=== PATIENT | male | born 1950 | race Caucasian/White ===

== ENCOUNTER → 2023-09-28 | Outpatient (CLI) | payer MEDICARE, OTHER, SELFPAY ==
--- NOTE | 2023-09-28 14:02 | EKG12_ITS ---
Test Reason : PRE OP Blood Pressure : / mmHG Vent. Rate : 079 BPM Atrial Rate : 079 BPM P-R Int : 170 ms QRS Dur : 084 ms QT Int : 384 ms P-R-T Axes : 067 034 021 degrees QTc Int : 440 ms Normal sinus rhythm Normal ECG Confirmed by Cory Spear ([id number]), publication editor FELISA GLASER ([id number]) on 09/29/2023 6:55:21 AM Referred By: Roxi Anderson Confirmed By:Cory Spear
[2023-09-28 15:07] LABS: Absolute Lymphocyte Count 1.56 X10^3/uL (0.83-4.51); Absolute Neutrophil Count 2.9 X10^3/uL (2.0-7.7); Basophil# 0.04 X10^3/uL; Basophil% 0.8 % (0-1); Eosinophil# 0.22 X10^3/uL; Eosinophils% 4.2 % (0-5); Hematocrit 40.3 % (40-54); Hemoglobin 14.1 g/dL (13.0-16.5); Lymphocyte # 1.56 X10^3/ul (0.83-4.51); Mean Corpuscular Hgb 31.3 pg (27.0-32.0); Mean Corpuscular Volume 89.4 fL (80-94); Mean Platelet Vol. 9.5 fl (6.2-12.0); Monocyte# 0.45 X10^3/uL; Monocyte% 8.7 % (0-10); NRBC Flagged by Analyzer 0 % (0-5); Neutrophil # 2.92 X10^3/uL (2.7-7.7); Neutrophil % 56.1 % (47-70); Platelet Count 221 K/mm3 (150-450); RBC Distribution Width CV 12.1 % (11.6-14.6); RBC Distribution Width SD 39.3 fl (35.1-43.9); Red Blood Count 4.51 M/mm3 (4.6-6.2); White Blood Count 5.2 K/mm3 (4.4-11.0)
[2023-09-28 15:35] LABS: Anion Gap 5 (5-15); BUN 24 mg/dL (7-18); BUN/Creat Ratio 16.3 RATIO (10-20); Calcium,Total 9.1 mg/dL (8.5-10.1); Chloride 103 mmol/L (98-107); Creatinine, Serum 1.47 mg/dL (0.70-1.30); EST Glomerular Filtration Rate 50 mL/min (>60); Est Glom Filt Rate - Afr Amer 60 mL/min (>60); Glucose 139 mg/dL (74-106); Potassium 3.9 mmol/L (3.5-5.1); Sodium Level 136 mmol/L (136-145)
== END | disposition home or self-care (01) ==
LOC: PSN 14:01
PROVIDERS: PCP Family Medicine; Referring Provider Physician Assistant Surgical; Visit Provider Physician Assistant Surgical
DX: Z01.810 Encounter for preprocedural cardiovascular examination (principal)
CPT/HCPCS: 36415; 80048; 85025; 93005

== ENCOUNTER → 2024-07-28 | Outpatient (CLI) | payer MEDICARE, OTHER, SELFPAY ==
--- NOTE | 2024-07-28 15:41 | CT_ITS ---
PROCEDURE: SOFT TISSUE NECK WITH CONTRAST REASON FOR EXAM: Right-sided neck mass TECHNIQUE: CT of the soft tissues of the neck from the orbits to the upper mediastinum with intravenous contrast. CONTRAST: Administered COMPARISON: No prior examinations are currently available for comparison. FINDINGS: Metallic BB just cephalad to the right parotid gland, paz area of concern. Subjacent to this, no masses or fluid collections are identified. Fat planes are preserved. Airway: Midline and patent. Salivary glands: Symmetric and appear within normal limits. Lymph nodes: No cervical lymphadenopathy. Thyroid: Somewhat hypoplastic with homogeneous enhancement. No dominant nodules are identified. Vasculature: Vascular calcifications within the carotid bifurcations bilaterally slightly more prominent on the right. Jugular veins appear patent bilaterally. Orbits: Unremarkable at visualized levels. Paranasal sinuses and mastoids: Tiny mucous retention cyst versus polyp within the right maxillary sinus measures 6 mm. Remaining visualized paranasal sinuses and mastoid air cells are well pneumatized. Lung apices: Clear. Upper mediastinum: Vascular calcifications within the aortic arch. No visualized mediastinal lymphadenopathy. Bones: Spondylotic changes involving the cervical spine. Numerous missing teeth. CT/Soft Tissue Neck WITH Contrast IMPRESSION: 1. No soft tissue masses or fluid collection seen within the right neck. 2. No cervical lymphadenopathy is identified bilaterally. 3. Tiny mucous retention cyst versus polyp within the right maxillary sinus gisele suring 6 mm. 4. Spondylotic change involving the cervical spine. One or more dose reduction techniques were used (e.g., Automated exposure contr ol, adjustment of the mA and/or kV according to patient size, use of iterative reconstruction technique). Reading Location: [facility]
== END | disposition home or self-care (01) ==
PROVIDERS: PCP Family Medicine; Referring Provider Otolaryngology; Visit Provider Otolaryngology
DX: R22.1 Localized swelling, mass and lump, neck (principal)
CPT/HCPCS: 70491; Q9967